=== PATIENT | female | born 1960 | race Caucasian/White ===

== ENCOUNTER → 2017-05-22 | Outpatient (CLI) | payer OTHER ==
--- NOTE | 2017-05-22 11:27 | FL ---
EXAMINATION TYPE: FL barium swallow w video DATE OF EXAM: 05/22/2017 COMPARISON: NONE HISTORY: Dysphasia food sticking TECHNIQUE: Fluoroscopy. FINDINGS: Fluoroscopic guidance was provided for the procedure performed in conjunction with the [facility] pathology department. Please see complete report forthcoming from the Speech Pathology departmen t. Various consistencies from thin liquid to solids were administered. Fluoroscopy time 55 seconds Number of images: 0. No aspiration or penetration was evident. No significant pooling was observed in the vallecula. There was normal propulsion of the bolus. IMPRESSION: 1. Normal modified barium swallow
== END | disposition home or self-care (01) ==
LOC: RADFLMAIN 10:45
DX: R47.02 Dysphasia (principal)
CPT/HCPCS: 74230

== ENCOUNTER → 2017-07-26 | Outpatient (CLI) | payer OTHER ==
--- NOTE | 2017-07-26 13:24 | ECHOS ---
Referral Reason:R07.9 Chest Pain, R55 Pre-Syncope MEASUREMENTS -------- HEIGHT: 160.0 cm WEIGHT: 49.9 kg BP: 113/82 WallScoring: string WallScoring: string WallScoring: string FINDINGS -------- Utilizing the standard Loi protocol the patient was exercised for 7 minutes, 0 seconds, achieving a maximum heart rate of 141 , which is 87 % of predicted maximal heart rate. There was physiologic heart rate and blood pressure response to exercise. Max Heart Rate: 141 % of Max Predicted Heart Rate: 87% Rest Heart Rate: 81 Rest BP: 113/82 Max BP: 171/92 Mets Achieved: 8.5 The test was stopped because of fatigue. The test was stopped because the target heart rate was achieved. This level of exercise represents an average exercise tolerance for age. Sinus rhythm. In response to stress, the ECG showed no ST-T wave changes . In response to stress, the ECG showed no ST-T wave changes . There were normal blood pressure and heart rate responses to stress. LV size, wall thickness and systolic function are normal, with an EF of 60%. Echo images were acquired at peak stress which demonstrated appropriate augmentation of all left ventricular segments. CONCLUSIONS -------- 1. Utilizing the standard Loi protocol the patient was exercised for 7 minutes, 0 seconds, achieving a maximum heart rate of 141 , which is 87 % of predicted maximal heart rate. There was physiologic heart rate and blood pressure response to exercise. 2. The test was stopped because of fatigue. 3. This level of exercise represents an average exercise tolerance for age. 4. In response to stress, the ECG showed no ST-T wave changes . 5. No 2D echocardiographic evidence of inducible ischemia to achieved workload. SUPERVISOR ROAD ADMINISTRATOR: MALLORIE Nino
== END | disposition home or self-care (01) ==
LOC: RADNMMAIN 09:47
PROVIDERS: ATTEND Family Medicine
DX: R55 Syncope and collapse (principal); R07.9 Chest pain, unspecified; Z88.8 Allergy status to other drugs, medicaments and biological substances
CPT/HCPCS: 93017; 93350

== ENCOUNTER → 2020-09-27 | Outpatient (CLI) | payer OTHER ==
[2020-09-27 08:22] LABS: ALT 71 U/L (4-34); AST 41 U/L (14-36); African American GFR (CKD) >90 (>60 ml/min/1.73 sqM); Albumin 4.5 g/dL (3.5-5.0); Alkaline Phosphatase 86 U/L (38-126); Anion Gap 5 mmol/L; Blood Urea Nitrogen 20 mg/dL (7-17); Calcium 9.7 mg/dL (8.4-10.2); Carbon Dioxide 29 mmol/L (22-30); Chloride 105 mmol/L (98-107); Glucose 103 mg/dL (74-99); Non-African American GFR(CKD) >90 (>60 ml/min/1.73 sqM); Potassium 5.1 mmol/L (3.5-5.1); Sodium 139 mmol/L (137-145); Total Bilirubin 0.4 mg/dL (0.2-1.3); Total Protein 7.6 g/dL (6.3-8.2)
[2020-09-27 08:30] LABS: T4, Free (Free Thyroxine) 1.88 ng/dL (0.78-2.19)
--- NOTE | 2020-09-27 19:35 | MR ---
EXAMINATION TYPE: MR cervical spine wo con DATE OF EXAM: 09/27/2020 COMPARISON: None HISTORY: Headaches, neck pain into arms TECHNIQUE: Multiplanar, multisequence images of the cervical spine were acquired. C2-C3: No evidence for degenerative disc disease. No disc bulge/herniation or protrusion. No Canal stenosis. Foramina are patent bilaterally. C3-C4: Minimal posterior disc bulge causes slight anterior mass effect on the thecal sac. Uncovertebr al joint hypertrophy contributes to cause some mild foraminal encroachment on the right. C4-C5: Posterior extension endplate disc complex causes mild anterior mass effect on the thecal sac. C5-C6: Disc space is obliterated. No foraminal encroachment or disc herniation. C6-C7: Posterior extension endplate disc complex causes mild anterior mass effect on the thecal sac. There is some facet arthropathy change suspected on the right, T2 bright focus along the posterior as pect of the neural foramen may be related to synovial cyst. Possible geode along the facet on the rig ht. T2 bright signal is present. C7-T1: T2 bright focus along the posterior aspect of the neural foramen on the right could possibly r epresent synovial cyst related to the facet. No disc herniation. Cervical segments are intact. There is prior fusion at C5-6, multilevel spondylosis is present, loss of disc height signal is present greatest at C4-5, there is endplate discogenic marrow signal change , no evident spinal stenosis. Arthropathy change present at the C1-2 level anteriorly. Cervical spina l cord is of normal signal. Craniovertebral junction relationships are within normal limits. There is a spinal curvature. IMPRESSION: Possible foraminal encroachment on the right as described at C6-7, C7-T1, possible synovial cyst. Pos t contrast exam may be of benefit. Degenerative disc disease, multilevel facet arthropathy as describ ed. Correlate for history of cervical fusion.
== END | disposition home or self-care (01) ==
LOC: RADMRIMAIN 06:26
PROVIDERS: ATTEND Family Medicine
DX: M50.10 Cervical disc disorder with radiculopathy, unspecified cervical region (principal); M47.22 Other spondylosis with radiculopathy, cervical region; E03.9 Hypothyroidism, unspecified
CPT/HCPCS: 36415; 72141; 80053; 84439; 84443

== ENCOUNTER → 2024-11-26 | Outpatient (CLI) | payer MEDICARE ==
--- NOTE | 2024-11-26 08:26 | BD ---
EXAMINATION TYPE: Axial Bone Density DATE OF EXAM: 11/26/2024 CLINICAL HISTORY: 64 years old Female. ICD-10 CODE: Z78.0 ASYMP [place]AS[place] STATE , Additional History: Height: 61 Weight: 100 FRAX RISK QUESTIONS: Family History (Parent hip fracture): no History of Fracture in Adulthood: no Secondary Osteoporosis: yes 3. Menopause before 45: 40 RISK FACTORS HISTORY OF: Surgery to Spine/Hip(right/left)/Wrist (right/left): no MEDICATIONS: Thyroid Medications: yes Which medication: How Lon+ years Osteoporosis Medications: no EXAM MEASUREMENTS: Bone mineral densitometry was performed using the [employer] System. Bone mineral density as measured about the Lumbar spine is: ----- L1-L4(G/cm2): 0.852 T Score Values are as follows: ----- L1: -3.6 ----- L2: -3.4 ----- L3: -2.5 ----- L4: -2.1 ----- L1-L4: -2.7 Z Score Values are as follows: ----- L1: -1.3 ----- L2: -1.1 ----- L3: -0.2 ----- L4: 0.2 ----- L1-L4: -0.5 Bone mineral density baseline Bone mineral density about the R hip (g/cm2): 0.611 Bone mineral density about the L hip (g/cm2): 0.574 T Score values are as follows: -----R Neck: -2.8 -----L Neck: -2.8 -----R Total: -3.1 -----L Total: -3.4 Z Score values are as follows: -----R Neck: -0.9 -----L Neck: -0.9 -----R Total: -1.5 -----L Total: -1.8 Bone mineral density baseline FRAX%s: The graph provided illustrates a 13.0% chance for a major osteoporotic fx and a 3.6% chance f or the hips probability for fx in 10 years time. IMPRESSION: Osteoporosis (T Score less than -2.5). There is increased fracture risk and therapy is usually indicated based on age. Re-Screen 1-2 years. NOTE: T-SCORE=SD OF THE YOUNG ADULT MEAN. [facility], , 11/26/2024 8:23 AM
== END | disposition home or self-care (01) ==
LOC: RADBDWWP 06:50
PROVIDERS: ATTEND Family Medicine
DX: M81.0 Age-related osteoporosis without current pathological fracture (principal); M85.89 Other specified disorders of bone density and structure, multiple sites; Z78.0 Asymptomatic menopausal state
CPT/HCPCS: 77080

== ENCOUNTER → 2025-03-06 | Outpatient (CLI) | payer MEDICARE ==
[~2025-03-06] MED LIST: SODIUM CHLORIDE 0.9% 250 ML in EMPTY BAG 1 BAG IV PRN
[2025-03-06 13:29] VITALS: BP 152/65; PULSE 60; RESP 16; TEMP 97.5
[2025-03-06] MEDS: SODIUM CHLORIDE 0.9% 500 ML 500 ML in EMPTY BAG 1 BAG IV PRN (13:32)
[2025-03-06] MEDS: ZOLEDRONIC ACID 5 MG in SODIUM CHLORIDE 0.9% 100 ML IV NR (13:33)
== END ==
LOC: PROCWHC3 12:08
PROVIDERS: ATTEND Nurse Practitioner
DX: M81.0 Age-related osteoporosis without current pathological fracture (principal)
CPT/HCPCS: 96365; J3489